=== PATIENT | male | born 1945 | race Caucasian/White ===

== ENCOUNTER 2021-07-21 09:35 | Inpatient (IN) | payer MEDICARE ==
[2021-07-21 10:13] LABS: Hemoglobin 10.7 g/dL (14.0-18.0); Mean Corpuscular HGB CONC 32.5 g/dL (32.0-36.0); Mean Corpuscular Hemoglobin 27.5 pg (27.0-31.0); Mean Corpuscular Volume 84.7 fL (78.0-98.0); RBC Distribution Width 14.8 % (11.5-14.5); Red Blood Cell (RBC) Count 3.88 mill/uL (4.70-6.10)
[2021-07-21 10:35] LABS: ALT (SGPT) 24 U/L (8-55); AST (SGOT) 34 U/L (5-34); Alkaline Phosphatase 122 U/L (40-110); Anion Gap 15 mmol/L (10-20); BUN (Urea Nitrogen) 24 mg/dL (8.4-25.7); Bilirubin, Total 1.2 mg/dL (0.2-1.2); Calc. Creatinine Clearance 0 mL/min (70-130); Calcium 9.6 mg/dL (7.8-10.44); Carbon Dioxide 23 mmol/L (23-31); Chloride 101 mmol/L (98-107); Globulin 4.2 g/dL (2.4-3.5); Glucose 216 mg/dL (83-110); Potassium 4.1 mmol/L (3.5-5.1); Protein, Total 7.2 g/dL (5.8-8.1); Sodium 135 mmol/L (136-145)
[2021-07-21 10:41] LABS: Anisocytosis SLIGHT = 6-15 cells (100X) (0-5/hpf); Lymphocytes 4 % (21-51); MDiff Complete? YES; Mean Platelet Volume 6.8 fL (7.4-10.4); Monocytes 6 % (0-10); Neutrophil 90 % (42-75); Platelet Count 233 thou/uL (130-400); Platelet Morphology Comment Appears Adequate; White Blood Cell (WBC) Count 10.2 thou/uL (4.8-10.8)
[2021-07-21 10:45] LABS: Bilirubin Negative (Negative); Blood, Urine Negative (Negative); Clarity Clear (Clear); Glucose, Urine (Dipstick) Normal (Negative); Ketone, Urine Negative (Negative); Leukocyte Negative Leu/uL (Negative); Nitrite Negative (Negative); Protein, Urine (Dipstick) 10 mg/dL (Neg-Trace); Specific Gravity, Urine 1.012 (1.002-1.036); Urobilinogen Normal mg/dL (Less than 2)
[2021-07-21 10:56] LABS: CKMB 1.2 ng/mL (0-6.6)
[2021-07-21] MEDS ORDERED: Vancomycin 1 GM/200 ML BAG ONE (10:58)
[2021-07-21] MEDS ORDERED: Piperacillin/Tazobactam 4.5 GM in Sodium Chloride 0.9% 100 ML IVPB SCH (11:15)
[2021-07-21] MEDS ORDERED: Vancomycin 1 GM in Premix Bag 1 BAG IVPB SCH ×2 (11:15→21:00)
[2021-07-21] MEDS ORDERED: Acetaminophen 650 MG Suppository ONE (11:25)
[2021-07-21] MEDS ORDERED: Acetaminophen 325 MG TAB PO PRN (11:31)
[2021-07-21] MEDS ORDERED: Ondansetron ODT 4 MG TAB PO PRN (11:31)
[2021-07-21] MEDS ORDERED: Ondansetron PF 4 MG/2 ML Vial IVP PRN (11:31)
[2021-07-21] MEDS ORDERED: Piperacillin/Tazobactam 3.375 GM in Sodium Chloride 0.9% 100 ML IVPB SCH ×2 (12:00→17:00)
[2021-07-21] MEDS ORDERED: Dextrose 50% Abboject 50 ML SYRINGE SLOW IVP PRN (12:01)
[2021-07-21] MEDS ORDERED: Dextrose 5% in Water 1,000 ML IV PRN (12:01)
[2021-07-21 13:36] LABS: Troponin I 0.048 ng/mL (< 0.028)
[2021-07-21 16:44] LABS: Troponin I 0.041 ng/mL (< 0.028)
[2021-07-21] MEDS: Carbidopa/Levodopa 10-100 mg Tablet PO SCH (20:56)
[2021-07-21] MEDS: Bumetanide 1 MG TAB PO SCH (20:56)
[2021-07-21] MEDS: Atorvastatin Calcium 10 MG TAB PO SCH (20:57)
[2021-07-21] MEDS: Saccharomyces boulardii 250 MG CAP PO SCH (20:58)
[2021-07-21 21:42] VITALS: BMI 23.1
[2021-07-21] MEDS: Piperacillin/Tazobactam 3.375 GM in Sodium Chloride 0.9% 100 ML IVPB SCH (21:53)
[2021-07-22] MEDS ORDERED: Bumetanide 1 MG/4 ML VIAL IVP SCH (02:30)
[2021-07-22] MEDS: Piperacillin/Tazobactam 3.375 GM in Sodium Chloride 0.9% 100 ML IVPB SCH ×3 (04:50→20:58)
[2021-07-22 05:40] LABS: #Lymphocytes 0.3 thou/uL (1.20-3.40); #Monocytes 0.2 thou/uL (0.11-0.59); #Neutrophils 6.1 thou/uL (1.40-6.50); %Eosinophils 0.1 % (0.0-10.0); %Lymphocytes 4.5 % (21.0-51.0); %Monocytes 3.5 % (0.0-10.0); %Neutrophils 91.9 % (42.0-75.0); Mean Corpuscular HGB CONC 31.6 g/dL (32.0-36.0); Mean Corpuscular Hemoglobin 27.1 pg (27.0-31.0); Mean Corpuscular Volume 85.9 fL (78.0-98.0); Mean Platelet Volume 6.6 fL (7.4-10.4); Platelet Count 238 thou/uL (130-400); RBC Distribution Width 14.8 % (11.5-14.5); White Blood Cell (WBC) Count 6.6 thou/uL (4.8-10.8)
[2021-07-22 06:10] LABS: Anion Gap 14 mmol/L (10-20); BUN (Urea Nitrogen) 31 mg/dL (8.4-25.7); Calc. Creatinine Clearance 63 mL/min (70-130); Calcium 9.4 mg/dL (7.8-10.44); Carbon Dioxide 24 mmol/L (23-31); Chloride 103 mmol/L (98-107); Glucose 216 mg/dL (83-110); Potassium 3.8 mmol/L (3.5-5.1); Sodium 137 mmol/L (136-145)
[2021-07-22] MEDS: Enoxaparin Sodium 40 MG/0.4 ML SYRINGE SC SCH (08:53)
[2021-07-22] MEDS ORDERED: VANCOMYCIN 1.25 GM/250 ML BAG 1.25 GM in Premix Bag 1 BAG IVPB SCH (11:00)
[2021-07-22] MEDS: Cholecalciferol (Vitamin D3) 400 UNITS TAB PO SCH (14:14)
[2021-07-22] MEDS: Bumetanide 1 MG TAB PO SCH ×2 (14:14→15:01)
[2021-07-22] MEDS: Ferrous Sulfate 325 MG TAB PO SCH (14:14)
[2021-07-22] MEDS: Carbidopa/Levodopa 10-100 mg Tablet PO SCH ×3 (14:14→20:58)
[2021-07-22] MEDS: Finasteride 5 MG TAB PO SCH (14:15)
[2021-07-22] MEDS: Cyanocobalamin (Vitamin B-12) 1,000 MCG TAB PO SCH (14:15)
[2021-07-22] MEDS: Saccharomyces boulardii 250 MG CAP PO SCH ×2 (14:15→20:58)
[2021-07-22] MEDS: Polyethylene Glycol 3350 17 GM Packet PO SCH (14:15)
[2021-07-22] MEDS ORDERED: Albuterol 200 PUFF (6.7GM INHALER) INH PRN (16:08)
[2021-07-22] MEDS: HumaLOG 300 UNITS/3 ML VIAL SC PRN ×2 (16:56→20:58)
[2021-07-22] MEDS: Dextrose 5 % And 0.9 % NaCl 1,000 ML IV SCH (17:57)
[2021-07-22] MEDS: cloNIDine 0.1 MG TAB PO SCH (20:58)
[2021-07-22] MEDS: Donepezil HCl 5 MG TAB PO SCH (20:58)
[2021-07-22] MEDS: Atorvastatin Calcium 10 MG TAB PO SCH (20:58)
[2021-07-22] MEDS ORDERED: MELATONIN 3 MG PO SCH (21:00)
[2021-07-22] MEDS ORDERED: Non-Formulary Item 1 EACH (Carbidopa/Levodopa [Carbidopa-Levo 10-100 Mg Odt] 1 EACH Tab.R PO SCH (21:00)
[2021-07-23 05:34] LABS: #Lymphocytes 0.4 thou/uL (1.20-3.40); #Monocytes 0.7 thou/uL (0.11-0.59); #Neutrophils 10.3 thou/uL (1.40-6.50); %Eosinophils 0.1 % (0.0-10.0); %Lymphocytes 3.6 % (21.0-51.0); %Monocytes 5.7 % (0.0-10.0); %Neutrophils 90.7 % (42.0-75.0); Hemoglobin 10.9 g/dL (14.0-18.0); Mean Corpuscular HGB CONC 32.5 g/dL (32.0-36.0); Mean Corpuscular Hemoglobin 27.9 pg (27.0-31.0); Mean Platelet Volume 6.9 fL (7.4-10.4); Platelet Count 286 thou/uL (130-400); RBC Distribution Width 14.8 % (11.5-14.5); White Blood Cell (WBC) Count 11.4 thou/uL (4.8-10.8)
[2021-07-23 05:55] LABS: Anion Gap 12 mmol/L (10-20); BUN (Urea Nitrogen) 38 mg/dL (8.4-25.7); Calc. Creatinine Clearance 57 mL/min (70-130); Calcium 9.5 mg/dL (7.8-10.44); Carbon Dioxide 25 mmol/L (23-31); Chloride 108 mmol/L (98-107); Glucose 245 mg/dL (83-110); Potassium 3.7 mmol/L (3.5-5.1); Sodium 141 mmol/L (136-145)
[2021-07-23] MEDS: Piperacillin/Tazobactam 3.375 GM in Sodium Chloride 0.9% 100 ML IVPB SCH ×3 (06:09→21:05)
[2021-07-23] MEDS: HumaLOG 300 UNITS/3 ML VIAL SC PRN ×3 (06:09→21:06)
[2021-07-23] MEDS: Cholecalciferol (Vitamin D3) 400 UNITS TAB PO SCH (08:55)
[2021-07-23] MEDS: Finasteride 5 MG TAB PO SCH (08:55)
[2021-07-23] MEDS: Ferrous Sulfate 325 MG TAB PO SCH (08:56)
[2021-07-23] MEDS: Cholecalciferol 1,000 UNITS (25 MCG) TAB PO SCH (08:56)
[2021-07-23] MEDS: Bumetanide 1 MG TAB PO SCH ×2 (08:56→16:45)
[2021-07-23] MEDS: Saccharomyces boulardii 250 MG CAP PO SCH ×2 (08:56→21:05)
[2021-07-23] MEDS: Cyanocobalamin (Vitamin B-12) 1,000 MCG TAB PO SCH (08:56)
[2021-07-23] MEDS: Enoxaparin Sodium 40 MG/0.4 ML SYRINGE SC SCH (08:57)
[2021-07-23] MEDS: Carbidopa/Levodopa 10-100 mg Tablet PO SCH ×3 (08:57→21:05)
[2021-07-23] MEDS: Dexamethasone 10 MG/ML VIAL SLOW IVP SCH (08:58)
[2021-07-23] MEDS: Polyethylene Glycol 3350 17 GM Packet PO SCH (08:58)
[2021-07-23] MEDS: Lansoprazole 3 MG/ML ORAL SUSPENSION PO SCH (09:50)
[2021-07-23 10:14] LABS: Vancomycin, Trough 11.5 ug/mL
[2021-07-23] MEDS: Dextrose 5 % And 0.9 % NaCl 1,000 ML IV SCH (11:48)
[2021-07-23] MEDS: Vancomycin 1.5 GRAM/300 ML BAG 1.5 GM in Premix Bag 1 BAG IVPB SCH (11:50)
[2021-07-23] MEDS: Donepezil HCl 5 MG TAB PO SCH (21:05)
[2021-07-23] MEDS: cloNIDine 0.1 MG TAB PO SCH (21:05)
[2021-07-23] MEDS: Atorvastatin Calcium 10 MG TAB PO SCH (21:05)
[2021-07-24] MEDS: Piperacillin/Tazobactam 3.375 GM in Sodium Chloride 0.9% 100 ML IVPB SCH ×3 (04:16→20:14)
[2021-07-24 05:04] LABS: #Lymphocytes 0.7 thou/uL (1.20-3.40); #Monocytes 0.7 thou/uL (0.11-0.59); #Neutrophils 8.7 thou/uL (1.40-6.50); %Eosinophils 0.1 % (0.0-10.0); %Lymphocytes 6.8 % (21.0-51.0); %Monocytes 7.3 % (0.0-10.0); %Neutrophils 85.8 % (42.0-75.0); Hemoglobin 10.9 g/dL (14.0-18.0); Mean Corpuscular HGB CONC 32.7 g/dL (32.0-36.0); Mean Corpuscular Volume 85.6 fL (78.0-98.0); Mean Platelet Volume 6.8 fL (7.4-10.4); Platelet Count 285 thou/uL (130-400); RBC Distribution Width 14.8 % (11.5-14.5); Red Blood Cell (RBC) Count 3.88 mill/uL (4.70-6.10); White Blood Cell (WBC) Count 10.2 thou/uL (4.8-10.8)
[2021-07-24 05:27] LABS: Anion Gap 14 mmol/L (10-20); BUN (Urea Nitrogen) 37 mg/dL (8.4-25.7); Calc. Creatinine Clearance 56 mL/min (70-130); Calcium 9.2 mg/dL (7.8-10.44); Carbon Dioxide 23 mmol/L (23-31); Chloride 112 mmol/L (98-107); Glucose 188 mg/dL (83-110); Potassium 3.7 mmol/L (3.5-5.1); Sodium 145 mmol/L (136-145)
[2021-07-24] MEDS ORDERED: FLU VACC QS2021-22(65YR UP)/PF 240 MCG/0.7 ML SYRINGE IM ONE (09:00)
[2021-07-24] MEDS: Bumetanide 1 MG TAB PO SCH ×2 (10:10→15:03)
[2021-07-24] MEDS: Finasteride 5 MG TAB PO SCH (10:11)
[2021-07-24] MEDS: Ferrous Sulfate 325 MG TAB PO SCH (10:11)
[2021-07-24] MEDS: Enoxaparin Sodium 40 MG/0.4 ML SYRINGE SC SCH (10:11)
[2021-07-24] MEDS: Cholecalciferol 1,000 UNITS (25 MCG) TAB PO SCH (10:11)
[2021-07-24] MEDS: Carbidopa/Levodopa 10-100 mg Tablet PO SCH ×3 (10:11→20:14)
[2021-07-24] MEDS: Cyanocobalamin (Vitamin B-12) 1,000 MCG TAB PO SCH (10:11)
[2021-07-24] MEDS: Dexamethasone 10 MG/ML VIAL SLOW IVP SCH (10:12)
[2021-07-24] MEDS: Saccharomyces boulardii 250 MG CAP PO SCH ×2 (10:12→20:14)
[2021-07-24] MEDS: Lansoprazole 3 MG/ML ORAL SUSPENSION PO SCH (10:12)
[2021-07-24] MEDS: Dextrose 5 % And 0.9 % NaCl 1,000 ML IV SCH (10:14)
[2021-07-24] MEDS: Polyethylene Glycol 3350 17 GM Packet PO SCH (10:46)
[2021-07-24] MEDS: Vancomycin 1.5 GRAM/300 ML BAG 1.5 GM in Premix Bag 1 BAG IVPB SCH (12:05)
[2021-07-24] MEDS: HumaLOG 300 UNITS/3 ML VIAL SC PRN ×3 (12:06→20:24)
[2021-07-24] MEDS: Atorvastatin Calcium 10 MG TAB PO SCH (20:14)
[2021-07-24] MEDS: Donepezil HCl 5 MG TAB PO SCH (20:14)
[2021-07-24] MEDS: cloNIDine 0.1 MG TAB PO SCH (20:14)
[2021-07-25] MEDS: Piperacillin/Tazobactam 3.375 GM in Sodium Chloride 0.9% 100 ML IVPB SCH ×3 (05:20→20:36)
[2021-07-25 06:19] LABS: Anion Gap 12 mmol/L (10-20); BUN (Urea Nitrogen) 34 mg/dL (8.4-25.7); Calc. Creatinine Clearance 51 mL/min (70-130); Calcium 8.8 mg/dL (7.8-10.44); Carbon Dioxide 24 mmol/L (23-31); Chloride 115 mmol/L (98-107); Glucose 200 mg/dL (83-110); Potassium 3.5 mmol/L (3.5-5.1); Sodium 147 mmol/L (136-145)
[2021-07-25] MEDS: Enoxaparin Sodium 40 MG/0.4 ML SYRINGE SC SCH (09:56)
[2021-07-25] MEDS: Cholecalciferol 1,000 UNITS (25 MCG) TAB PO SCH (09:57)
[2021-07-25] MEDS: Finasteride 5 MG TAB PO SCH (09:57)
[2021-07-25] MEDS: Bumetanide 1 MG TAB PO SCH (09:57)
[2021-07-25] MEDS: Saccharomyces boulardii 250 MG CAP PO SCH ×2 (09:57→20:36)
[2021-07-25] MEDS: Cyanocobalamin (Vitamin B-12) 1,000 MCG TAB PO SCH (09:57)
[2021-07-25] MEDS: Polyethylene Glycol 3350 17 GM Packet PO SCH (09:57)
[2021-07-25] MEDS: Ferrous Sulfate 325 MG TAB PO SCH (09:57)
[2021-07-25] MEDS: Dexamethasone 10 MG/ML VIAL SLOW IVP SCH (09:58)
[2021-07-25] MEDS: Lansoprazole 3 MG/ML ORAL SUSPENSION PO SCH (09:58)
[2021-07-25] MEDS: Carbidopa/Levodopa 10-100 mg Tablet PO SCH ×3 (09:59→20:35)
[2021-07-25] MEDS: Dextrose 5 %-0.45 % NaCl 1,000 ML IV SCH (12:15)
[2021-07-25] MEDS: Vancomycin 1.5 GRAM/300 ML BAG 1.5 GM in Premix Bag 1 BAG IVPB SCH (12:15)
[2021-07-25] MEDS: HumaLOG 300 UNITS/3 ML VIAL SC PRN ×2 (16:38→20:55)
[2021-07-25] MEDS: cloNIDine 0.1 MG TAB PO SCH (20:35)
[2021-07-25] MEDS: Donepezil HCl 5 MG TAB PO SCH (20:35)
[2021-07-25] MEDS: Atorvastatin Calcium 10 MG TAB PO SCH (20:36)
[2021-07-26] MEDS: Dextrose 5 %-0.45 % NaCl 1,000 ML IV SCH ×2 (00:21→09:00)
[2021-07-26] MEDS: Lorazepam 2 MG/ML VIAL SLOW IVP PRN ×2 (00:23→23:23)
[2021-07-26] MEDS: Piperacillin/Tazobactam 3.375 GM in Sodium Chloride 0.9% 100 ML IVPB SCH ×3 (04:32→20:22)
[2021-07-26] MEDS: HumaLOG 300 UNITS/3 ML VIAL SC PRN ×3 (05:32→17:32)
[2021-07-26 06:22] LABS: #Basophils 0.1 thou/uL (0.0-0.2); #Eosinphils 0.1 thou/uL (0.0-0.7); #Lymphocytes 0.6 thou/uL (1.20-3.40); #Monocytes 0.4 thou/uL (0.11-0.59); #Neutrophils 7.1 thou/uL (1.40-6.50); %Basophils 0.7 % (0.0-1.0); %Lymphocytes 7.7 % (21.0-51.0); %Monocytes 5.3 % (0.0-10.0); %Neutrophils 85.3 % (42.0-75.0); Hemoglobin 9.9 g/dL (14.0-18.0); Mean Corpuscular Hemoglobin 27.5 pg (27.0-31.0); Mean Platelet Volume 6.8 fL (7.4-10.4); Platelet Count 225 thou/uL (130-400); RBC Distribution Width 15.1 % (11.5-14.5); White Blood Cell (WBC) Count 8.3 thou/uL (4.8-10.8)
[2021-07-26 06:38] LABS: Anion Gap 13 mmol/L (10-20); BUN (Urea Nitrogen) 24 mg/dL (8.4-25.7); Calc. Creatinine Clearance 65 mL/min (70-130); Calcium 8.6 mg/dL (7.8-10.44); Carbon Dioxide 20 mmol/L (23-31); Chloride 113 mmol/L (98-107); Glucose 185 mg/dL (83-110); Potassium 3.3 mmol/L (3.5-5.1); Sodium 143 mmol/L (136-145)
[2021-07-26] MEDS: Polyethylene Glycol 3350 17 GM Packet PO SCH (08:57)
[2021-07-26] MEDS: Dexamethasone 10 MG/ML VIAL SLOW IVP SCH (08:57)
[2021-07-26] MEDS: Carbidopa/Levodopa 10-100 mg Tablet PO SCH ×3 (08:57→20:22)
[2021-07-26] MEDS: Finasteride 5 MG TAB PO SCH (08:58)
[2021-07-26] MEDS: Cyanocobalamin (Vitamin B-12) 1,000 MCG TAB PO SCH (08:58)
[2021-07-26] MEDS: Ferrous Sulfate 325 MG TAB PO SCH (08:58)
[2021-07-26] MEDS: Enoxaparin Sodium 40 MG/0.4 ML SYRINGE SC SCH (08:58)
[2021-07-26] MEDS: Cholecalciferol 1,000 UNITS (25 MCG) TAB PO SCH (08:58)
[2021-07-26] MEDS: Saccharomyces boulardii 250 MG CAP PO SCH ×2 (08:58→20:22)
[2021-07-26] MEDS: Vancomycin 1.5 GRAM/300 ML BAG 1.5 GM in Premix Bag 1 BAG IVPB SCH (10:23)
[2021-07-26] MEDS: Bumetanide 1 MG TAB PO SCH (10:23)
[2021-07-26] MEDS: Lansoprazole 3 MG/ML ORAL SUSPENSION PO SCH (15:39)
[2021-07-26] MEDS: Melatonin 3 MG TAB PO PRN (20:21)
[2021-07-26] MEDS: Atorvastatin Calcium 10 MG TAB PO SCH (20:22)
[2021-07-26] MEDS: cloNIDine 0.1 MG TAB PO SCH (20:22)
[2021-07-26] MEDS: Donepezil HCl 5 MG TAB PO SCH (20:22)
[2021-07-27] MEDS: HumaLOG 300 UNITS/3 ML VIAL SC PRN ×3 (04:51→17:03)
[2021-07-27] MEDS: Piperacillin/Tazobactam 3.375 GM in Sodium Chloride 0.9% 100 ML IVPB SCH ×3 (04:51→20:17)
[2021-07-27] MEDS: Polyethylene Glycol 3350 17 GM Packet PO SCH (09:48)
[2021-07-27] MEDS: Bumetanide 1 MG TAB PO SCH (09:49)
[2021-07-27] MEDS: Enoxaparin Sodium 40 MG/0.4 ML SYRINGE SC SCH (09:49)
[2021-07-27] MEDS: Carbidopa/Levodopa 10-100 mg Tablet PO SCH ×3 (09:49→20:17)
[2021-07-27] MEDS: Saccharomyces boulardii 250 MG CAP PO SCH ×2 (09:50→20:17)
[2021-07-27] MEDS: Lansoprazole 3 MG/ML ORAL SUSPENSION PO SCH (09:50)
[2021-07-27] MEDS: Cyanocobalamin (Vitamin B-12) 1,000 MCG TAB PO SCH (09:50)
[2021-07-27] MEDS: Finasteride 5 MG TAB PO SCH (09:50)
[2021-07-27] MEDS: Ferrous Sulfate 325 MG TAB PO SCH (09:51)
[2021-07-27] MEDS: Dexamethasone 10 MG/ML VIAL SLOW IVP SCH (09:52)
[2021-07-27] MEDS: Cholecalciferol 1,000 UNITS (25 MCG) TAB PO SCH (09:52)
[2021-07-27 10:15] LABS: Vancomycin, Trough 19.4 ug/mL
[2021-07-27] MEDS: Vancomycin 1.5 GRAM/300 ML BAG 1.5 GM in Premix Bag 1 BAG IVPB SCH (11:25)
[2021-07-27] MEDS: Donepezil HCl 5 MG TAB PO SCH (20:17)
[2021-07-27] MEDS: cloNIDine 0.1 MG TAB PO SCH (20:17)
[2021-07-27] MEDS: Atorvastatin Calcium 10 MG TAB PO SCH (20:17)
[2021-07-27] MEDS: Melatonin 3 MG TAB PO PRN (20:18)
[2021-07-27] MEDS: Lorazepam 2 MG/ML VIAL SLOW IVP PRN (20:18)
[2021-07-28] MEDS: Piperacillin/Tazobactam 3.375 GM in Sodium Chloride 0.9% 100 ML IVPB SCH (05:05)
[2021-07-28] MEDS: Cyanocobalamin (Vitamin B-12) 1,000 MCG TAB PO SCH (08:28)
[2021-07-28] MEDS: Cholecalciferol 1,000 UNITS (25 MCG) TAB PO SCH (08:28)
[2021-07-28] MEDS: Bumetanide 1 MG TAB PO SCH (08:28)
[2021-07-28] MEDS: Carbidopa/Levodopa 10-100 mg Tablet PO SCH ×2 (08:28→14:33)
[2021-07-28] MEDS: Finasteride 5 MG TAB PO SCH (08:28)
[2021-07-28] MEDS: Enoxaparin Sodium 40 MG/0.4 ML SYRINGE SC SCH (08:28)
[2021-07-28] MEDS: Dexamethasone 10 MG/ML VIAL SLOW IVP SCH (08:28)
[2021-07-28] MEDS: Saccharomyces boulardii 250 MG CAP PO SCH (08:28)
[2021-07-28] MEDS: Ferrous Sulfate 325 MG TAB PO SCH (08:28)
[2021-07-28] MEDS: Polyethylene Glycol 3350 17 GM Packet PO SCH (08:29)
[2021-07-28] MEDS: Lansoprazole 3 MG/ML ORAL SUSPENSION PO SCH (08:29)
[2021-07-28 08:43] VITALS: BP 151/67; TEMP 97.8
[2021-07-28] MEDS: Vancomycin 1.5 GRAM/300 ML BAG 1.5 GM in Premix Bag 1 BAG IVPB SCH (10:49)
[2021-07-28 11:14] LABS: Potassium 3.5 mmol/L (3.5-5.1)
[2021-07-28] MEDS: HumaLOG 300 UNITS/3 ML VIAL SC PRN ×2 (12:45→16:31)
[2021-07-28] MEDS ORDERED: Amoxicillin/Potassium Clav 875 MG TAB PO SCH (21:00)
== END 2021-07-28 16:41 | disposition home or self-care (01) | DRG 177 ==
LOC: ERS 09:35 → ERHOLD 11:24 → 2SW 19:58 → 2NO 07-23 23:24 → T4-B 07-25 15:05
PROVIDERS: ADMIT Internal Medicine; ATTEND Internal Medicine
PROC: 3E0333Z Introduction of Anti-inflammatory into Peripheral Vein, Percutaneous Approach (ICD-10-PCS; principal; 2021-07-21)
PROC: 8E0ZXY6 Isolation (ICD-10-PCS; 2021-07-21)
DX: U07.1 COVID-19 (principal); J96.01 Acute respiratory failure with hypoxia; J12.82 Pneumonia due to coronavirus disease 2019; I50.33 Acute on chronic diastolic (congestive) heart failure; J69.0 Pneumonitis due to inhalation of food and vomit; G20 Parkinson's disease; F02.80 Dementia in other diseases classified elsewhere, unspecified severity, without behavioral disturbance, psychotic disturbance, mood disturbance, and anxiety; I48.91 Unspecified atrial fibrillation; I25.10 Atherosclerotic heart disease of native coronary artery without angina pectoris; N40.0 Benign prostatic hyperplasia without lower urinary tract symptoms; F41.9 Anxiety disorder, unspecified; K21.9 Gastro-esophageal reflux disease without esophagitis; Z66 Do not resuscitate; N18.30 Chronic kidney disease, stage 3 unspecified; E11.22 Type 2 diabetes mellitus with diabetic chronic kidney disease; R13.10 Dysphagia, unspecified; I25.5 Ischemic cardiomyopathy; Z95.0 Presence of cardiac pacemaker; Z88.5 Allergy status to narcotic agent; Z88.8 Allergy status to other drugs, medicaments and biological substances; Z95.1 Presence of aortocoronary bypass graft; Z95.2 Presence of prosthetic heart valve
CPT/HCPCS: 36415; 36416; 51701; 71045; 71250; 80048; 80053; 80202; 81003; 82553; 82565; 83605; 83880; 84132; 84484; 85025; 87040; 87086; 93005; 93306; 94760; 96365; 96367; J1100; J1650; J1815; J2060; J2543; J3370; J3490; J7042